=== PATIENT | male | born 2000 | race Caucasian/White ===

== ENCOUNTER 2022-01-16 10:41 | Emergency (ER) | payer BC, OTHER ==
[2022-01-16 11:27] LABS: HEMOGLOBIN 14.8 gm/dl (14.0-17.5); RED BLOOD COUNT 4.98 M/UL (4.20-5.50); WHITE BLOOD COUNT 10.4 K/UL (4.5-11.0)
[2022-01-16 11:44] LABS: BUN/CREATININE RATIO 6 (0-10)
[2022-01-16] MEDS ORDERED: ENDOCET 5-3251 EACH PO (13:33)
== END 2022-01-16 14:58 | disposition home or self-care (01) ==
LOC: ER1 10:41
PROVIDERS: Emergency Medicine
DX: N13.2 Hydronephrosis with renal and ureteral calculous obstruction (principal)
CPT/HCPCS: 80053; 81001; 83690; 85025; 87086; 99284

== ENCOUNTER → 2022-01-24 | Outpatient (CLI) | payer BC, MEDICARE ==
[~2022-01-24] MED LIST: ENDOCET 5-3251 EACH PO
== END ==
LOC: EXRD 13:59
DX: N20.1 Calculus of ureter (principal)
CPT/HCPCS: 74018